=== PATIENT | female | born 1990 | race Caucasian/White ===

== ENCOUNTER 2017-04-23 15:22 | Emergency (ER) | payer MEDICAID ==
[~2017-04-23] VITALS: Ht 160 cm; Wt 74.1 kg
[~2017-04-23 15:22] MED LIST: IRON27TA PO; PREN-234 PO
[2017-04-23 15:30] VITALS: BP 124/76
--- NOTE | 2017-04-23 17:19 | NUR ---
Patient ambulated to bed 3 with family. RN evaluating patient at bedside.
--- NOTE | 2017-04-23 17:20 | NUR ---
27F BIB SELF C/O N/V & MID-ADOMINAL PAIN X TODAY. PT STATES 16 WEEKS ; STATES NO VAGINAL BLEEDING AT THIS TIME.HX: PT DENIES. SKIN IS PINK/WARM/DRY; AAOX4 WITH EVEN AND STEADY GAIT; LUNGS CLEAR BL; HR EVEN AND REGULAR; PT DENIES ANY FEVER, CP, SOB, OR COUGH AT THIS TIME; PATIENT STATES PAIN OF 5/10 AT THIS TIME; VSS; PATIENT POSITIONED FOR COMFORT; HOB ELEVATED; BEDRAILS UP X2; BED DOWN. ER MD MADE AWARE OF PT STATUS.
--- NOTE | 2017-04-23 17:42 | NUR ---
Patient appears to be resting comfortably in bed. Vital Signs within normal limits. Respirations even and unlabored.WILL CONTINUE TO MONITOR. Addendum: 04/23/17 at 1743 by [email or web address] AWAITING FOR MD EVALUATION Addendum: 04/23/17 at 1756 by [email or web address] FAMILY AT BEDSIDE.
--- NOTE | 2017-04-23 18:02 | NUR ---
ER MD DR MCBRIDE EVALUATING PT AT BEDSIDE.
--- NOTE | 2017-04-23 18:18 | NUR ---
LAB AT BEDSIDE.
[2017-04-23 18:34] LABS: BASOPHILS # (AUTO) 0.2 K/uL (0.00-0.22); BASOPHILS % (AUTO) 1.9 % (0.0-2.0); EOSINOPHILS # (AUTO) 0.1 K/uL (0-0.4); HEMATOCRIT 36.4 % (36-48); HEMOGLOBIN 11.7 g/dL (12.0-16.0); LYMPHOCYTES # (AUTO) 1.7 K/uL (2.5-16.5); LYMPHOCYTES % (AUTO) 17.6 % (20.5-51.1); MEAN CORPUSCULAR HEMOGLOBIN 29 pg (27-31); MEAN CORPUSCULAR HGB CONC 32 g/dL (33-37); MEAN CORPUSCULAR VOLUME 91 fL (80-94); MONOCYTES # (AUTO) 0.3 K/uL (0.8-1.0); MONOCYTES % (AUTO) 3.5 % (1.7-9.3); NEUTROPHILS # (AUTO) 7.3 K/uL (1.8-7.7); PLATELET COUNT (AUTO) 223 K/uL (140-450); WHITE BLOOD COUNT (AUTO) 9.6 K/uL (4.8-10.8)
[2017-04-23 18:46] LABS: ANION GAP 10.8 (8-16); CALCIUM 8.5 mg/dL (8.5-10.1); CARBON DIOXIDE 24.7 mmol/L (21-32); CREATININE 0.5 mg/dL (0.6-1.3); POTASSIUM 3.5 mmol/L (3.5-5.1)
[2017-04-23 18:49] LABS: PARTIAL THROMBOPLASTIN TIME 26.3 secs (22-35.6); PROTHROMBIN TIME 9.9 secs (10.8-13.4)
--- NOTE | 2017-04-23 19:00 | NUR ---
PT STATED HEADACHE 02/01. "I WANT PAIN MED". NOTIFIED ER MD DR MCBRIDE.
[2017-04-23 19:02] LABS: ALBUMIN 3.1 g/dL (3.4-5.0); THYROID STIMULATING HORMONE 2.37 uIU/mL (0.34-3.74); TOTAL BILIRUBIN 0.2 mg/dL (0.0-1.0); TOTAL PROTEIN, SERUM 6.8 g/dL (6.4-8.2)
--- NOTE | 2017-04-23 19:09 | NUR ---
Pt report given to TINO KOLB. Transfer of care at this time.
--- NOTE | 2017-04-23 19:10 | NUR ---
GOT REPORT FROM TINO CHOU. PT. RESTING IN BED, NO S/SX OF DISTRESS.
[2017-04-23] MEDS ORDERED: ACETAMINOPHEN EXTRA STRENGTH 500 MG TAB PO ONE (19:20)
[2017-04-23 19:43] VITALS: BP 120/73
--- NOTE | 2017-04-23 19:43 | NUR ---
Patient discharged with v/s stable. Written and verbal after care instructions given and explained. Patient verbalized understanding. Ambulatory with steady gait. All questions addressed prior to discharge. Advised to follow up with PMD.
== END 2017-04-23 19:43 | disposition home or self-care (01) ==
LOC: MED 15:22
DX: O26.892 Other specified pregnancy related conditions, second trimester (principal); R10.9 Unspecified abdominal pain; O21.9 Vomiting of pregnancy, unspecified; Z3A.15 15 weeks gestation of pregnancy
CPT/HCPCS: 36415; 76805; 80053; 81002; 81025; 84443; 84702; 85025; 85610; 85730; 86900; 86901; 99285; Q0092

== ENCOUNTER 2020-12-12 19:50 | Emergency (ER) | payer MEDICAID ==
[~2020-12-12] VITALS: Ht 162.6 cm; Wt 76.2 kg
[2020-12-12 20:02] VITALS: BP 147/82
[2020-12-12] MEDS ORDERED: KETOROLAC 30 MG/ML VIAL IM ONE (21:00)
[2020-12-12] MEDS ORDERED: CYCLOBENZAPRINE 10 MG TAB PO ONE (21:00)
[2020-12-12 22:19] LABS: APPEARANCE,URINE CLEAR (CLEAR); BILIRUBIN,URINE NEGATIVE (NEGATIVE); BLOOD, URINE NEGATIVE (NEGATIVE); COLOR,URINE YELLOW (YELLOW); LEUKOCYTE ESTERASE ,URINE NEGATIVE (NEGATIVE); NITRITE, URINE NEGATIVE (NEGATIVE); UGLUCOSE NEGATIVE (NEGATIVE)
[2020-12-12] MEDS ORDERED: NAPR-54 PO (22:41)
[2020-12-12] MEDS ORDERED: CYCL10TA33 PO (22:41)
[2020-12-12] MEDS ORDERED: LID5T TP (22:43)
[2020-12-12 22:51] VITALS: BP 139/95
[2020-12-13] MEDS ORDERED: LIDOCAINE 5% 1 EA PATCH TP SCH (09:00)
== END 2020-12-12 22:51 | disposition home or self-care (01) ==
LOC: MED 19:50
DX: R25.2 Cramp and spasm (principal)
CPT/HCPCS: 81003; 81025; 96372; 99283; J1885

== ENCOUNTER 2021-07-09 08:44 | Emergency (ER) | payer MEDICAID ==
[~2021-07-09] VITALS: Ht 162.6 cm; Wt 72.2 kg
[~2021-07-09 08:44] MED LIST changes: +CYCL10TA33 PO; +LID5T TP; +NAPR-54 PO
[2021-07-09 09:01] VITALS: BP 142/86
--- NOTE | 2021-07-09 09:15 | NUR ---
Patient ambulated to bed 11 with steady/even gait.
[2021-07-09] MEDS ORDERED: LIDOCAINE 5% 1 EA PATCH TP SCH (09:30)
[2021-07-09] MEDS ORDERED: ACETAMINOPHEN 325 MG TAB PO ONE (09:30)
--- NOTE | 2021-07-09 09:30 | NUR ---
Dr. Mercedes is evaluating patietn at bedside.
--- NOTE | 2021-07-09 09:30 | NUR ---
31 y/o F BIB self from home c/o L sided neck pain since 07/03/2021. Patient A&Ox4, ambulatory, reports sleeping on son's bed on Monday and waking up with neck pain. Patient states difficulty and pain upon moving head up and down. Denies injury, fall, trauma. Pt reports 01/02, sharp/constant, radiating down to left scapula. Patient states Naproxen unknown dose @ 0700 with relief to pain. Denies fever, chills, chest pain, nausea, vomiting, blurry vision, dizziness. States symptoms occurred one year ago when she was diagnosed with a "throat infection." Bed locked in lowest position, side rails x 1. PMH/Sx/Meds: Denies NKA
--- NOTE | 2021-07-09 10:18 | NUR ---
Pt states + relief to pain. Lidocaine patch remains on neck. 10/04 pain.
[2021-07-09] MEDS ORDERED: LID5T TP (10:28)
--- NOTE | 2021-07-09 10:37 | NUR ---
Patient discharged with v/s stable. Written and verbal after care instructions given and explained. Patient alert, oriented and verbalized understanding of instructions. Ambulatory with steady gait. All questions addressed prior to discharge. ID band removed. Patient advised to follow up with PMD. Rx of Lidocaine patch given. Patient educated on indication of medication including possible reaction and side effects. Opportunity to ask questions provided and answered.
== END 2021-07-09 10:37 | disposition home or self-care (01) ==
LOC: MED 08:44
DX: M54.2 Cervicalgia (principal); Z79.899 Other long term (current) drug therapy
CPT/HCPCS: 99283